=== PATIENT | male | born 1960 | race Caucasian/White ===

== ENCOUNTER → 2023-08-28 10:08 | Outpatient (REF) | payer OTHER, SELFPAY | LOC: RAD 10:08 | PROVIDERS: ATTENDING PHYSICIAN Internal Medicine Cardiovascular Disease; FAMILY PHYSICIAN Internal Medicine | DX: E85.9 Amyloidosis, unspecified (principal) | CPT/HCPCS: 78803; A9538 ==

== ENCOUNTER 2024-06-23 05:01 | Emergency (ER) | payer OTHER, SELFPAY ==
[2024-06-23] VITALS (7 sets, daily range): BP systolic 176–219; BP diastolic 100–127; BMI 32.9
--- NOTE | 2024-06-23 07:35 | ED.GENMED ---
History of Present Illness
General
Chief Complaint: Cardiac Symptoms
Time Seen by Provider: 06/23/24 06:36
History of Present Illness
History of Present Illness:
63-year-old male with history of paroxysmal A-fib, hypertension, BPH, [id number]-mbsxphzkj diabetes and hypothyroidism presents to the emergency department for evaluation of general malaise and fatigue. He was concerned last night that he may have
been in A-fib and notes that his pulse rate seem to dip frequently below 50. Denies any syncope or presyncope sensations. He did not take his nighttime beta-radha last night. No chest pain or shortness of breath. No recent fevers or chills.
Past history of multiple ablations for A-fib, he states to me that he has been recommended against consideration of antiarrhythmic therapy due to other medical concerns.
Past History
Past History
ED Past Medical History: Arrthythmia (Atrial fibrillation currently not on Coumadin), HTN, Hypercholesterolemia, NIDDM, Other (Peptic ulcer disease, gout) and Other (Goiter)
ED Past Surgical History: Other (Rouen-Y)
Social History
Tobacco: Non-smoker
Alcohol: Occasional
Drug: None
Personal:
Living: with family
Employment: Employed
Family History
Family History: Unable to obtain
Review of Systems
Review of Systems
Allergies reviewed?: Yes
All Other Systems: ROS reviewed and negative except as documented in HPI and ROS
Phy Exam
Physical Exam
Physical Exam:
GEN: Well appearing, NAD, WDWN
HEENT: Oral mucosa moist, no scleral icterus
Cardiac: Bradycardic, some irregularity/extrasystoles
Lung: No respiratory distress, no tachypnea
MSK: No gross deformity or injuries
Skin: Good color, no pallor or jaundice, no rashes
Neuro: AO x3, moves all extremities freely
Psych: Calm, cooperative
Course
Orders/Labs/Results
Orders:
Orders
06/23/24 05:06
ECG [Electrocardiogram (*1)] Urgent
Reason for Study: Atrial Fibrillation
06/23/24 05:07
EKG- Treatment ONCE
06/23/24 07:14
Complete Blood Count/With Diff Urgent
Comprehensive Metabolic Panel Urgent
06/23/24 08:18
Lactated Ringers [Lr] 1,000 ml IV BOLUS
06/23/24 08:46
Diltiazem [Cardizem] 60 mg PO NOW STA
Lisinopril [Zestril] 20 mg PO NOW STA
Abnormal Lab Results
06/23/24
07:14
RBC 3.27 L 10^6/uL
(4.70-6.10)
Hgb 10.0 L g/dL
(13.0-18.0)
Hct 30.1 L %
(39.0-52.0)
MPV 11.6 H fL
(7.4-10.4)
Absolute Lymphs (auto) 1.1 L 10^3/uL
(1.2-3.4)
Lymphocytes % 17.6 L %
(20.5-51.1)
Monocytes % 9.9 H %
(1.7-9.3)
Chloride 112 H mmol/L
(98-107)
BUN 41 H mg/dl
(9-20)
Creatinine 1.5 H mg/dL
(0.7-1.3)
Glucose 139 H mg/dl
(70-99)
ALT 54 H U/L
(0-50)
Total Protein 5.9 L g/dl
(6.3-8.2)
06/23/24 07:14
06/23/24 07:14
Vital Signs
Initial and Last Documented VS:
Initial Vital Signs
Temp Pulse Resp BP Pulse Ox
98 F 86 20 177/100 100
06/23/24 05:03 06/23/24 05:03 06/23/24 05:03 06/23/24 05:03 06/23/24 05:03
Last Documented Vital Signs
Temp Pulse Resp BP Pulse Ox
98 F 77 19 193/104 98
06/23/24 05:03 06/23/24 09:15 06/23/24 09:15 06/23/24 09:15 06/23/24 09:15
MDM/Problems Addressed
MDM/Problems Addressed:
Patient reporting symptomatic bradycardia due to heart rates in the 30s at home, I suspect some of this is artifactual due to his frequent PACs however with not having taken his beta-radha in over 24 hours he remains in the low 60s to upper 50s
continuously on telemetry. Given his reported fatigue I feel it is reasonable to down titrate his beta-blockers at home. This may result in uncontrolled hypertension and I recommended he see his primary care physician to follow-up on this.
*Critical Care Note
Total Time (30-74mins, 75-104mins- exclusive of procedures): Not Applicable
ED Attending Note
-
Portions of this chart may have been created with voice recognition software.� Occasional wrong word or��sound alike� substitutions may have occurred due to the inherent limitations of voice recognition software.
Discharge Plan
Departure
Patient Disposition: Home (Routine Discharge)
Date of Disposition: 06/23/24
Time of Disposition: 09:20
Patient with high blood pressure during this ER visit?: No
Discharge Problem:
Symptomatic bradycardia
Instructions: Bradycardia
Prescriptions:
No Action
metoprolol tartrate [Lopressor] 50 MG tablet
100 mg PO BID
allopurinol 300 MG tablet
300 mg PO QPM
Xarelto 20 mg Tablet
10 mg PO DAILY
methimazole 5 mg Tablet
5 mg PO DAILY
lisinopril 20 mg Tablet
20 mg PO DAILY
multivitamin Tablet
1 tab PO DAILY
zolpidem 10 mg Tablet
5 mg PO HS
alfuzosin 10 mg Tablet Extended Release 24 Hr
10 mg PO QPM
diltiazem HCl 60 mg Capsule,Extended Release 12 Hr
60 mg PO BID
lorazepam 1 mg Tablet
1 mg PO DAILYPRN PRN (Reason: anxiety)
Trulicity 1.5 mg/0.5 mL Pen Injector
1.5 mg SC TU
Referrals:
Jordan Sandoval MD [Family Provider] -
Activity Restrictions/Additional Instructions:
Decrease your metoprolol to 50mg twice daily
Follow up with your utility inspector and your primary doctor in 1-2 weeks for a blood pressure check and repeat EKG
Interventions
Interventions:
*Risk Screen - Suicide Last Done: 06/23/24 05:03
*General Assessment Last Done: 06/23/24 06:42
*Neglect/Abuse Screening Last Done: 06/23/24 05:03
*ED- Fall Risk Assessment Last Done: 06/23/24 06:42
*ED COVID-19 Vaccine History Last Done: 06/23/24 06:42
*Nursing Disposition Last Done: 06/23/24 09:41
ED- Pulmonary Assessment Last Done: 06/23/24 06:42
ED- Cardiac Assessment Last Done: 06/23/24 06:42
Discharge Date and Time
Discharge Date/Time: 06/23/24 09:41
Print Language: NEPALI
[2024-06-23 07:48] LABS: % Basophils 0.8 % (0-2); % Eosinophils 3.9 % (0-6); % Immature Granulocytes 0.5 % (0-0.5); % Lymphocytes 17.6 % (20.5-51.1); % Monocytes 9.9 % (1.7-9.3); % Neutrophils 67.3 % (42.2-75.2); Absolute Basophils 0.1 10^3/uL (0-0.2); Absolute Eosinophils 0.3 10^3/uL (0-0.7); Absolute Lymphocytes 1.1 10^3/uL (1.2-3.4); Absolute Monocytes 0.6 10^3/uL (0.1-0.6); Absolute Neutrophils 4.3 10^3/uL (1.4-6.5); Hematocrit 30.1 % (39.0-52.0); Mean Corp Hgb Conc. 33.2 g/dL (33.0-37.0); Mean Corpuscular Hgb 30.6 pg (27.0-31.0); Mean Platelet Volume 11.6 fL (7.4-10.4); Nucleated Red Blood Cells % 0 % (-); Platelet Count 132 10^3/uL (130-400); Red Blood Cell Count 3.27 10^6/uL (4.70-6.10); Red Cell Dist. Width 13.3 % (11.5-14.5); White Blood Cell Count 6.4 10^3/uL (4.8-10.8)
[2024-06-23 08:14] LABS: ALT (SGPT) 54 U/L (0-50); AST (SGOT) 39 U/L (17-59); Albumin 3.5 g/dl (3.5-5.0); Alkaline Phosphatase 84 U/L (38-126); Blood Urea Nitrogen 41 mg/dl (9-20); Carbon Dioxide 22 mmol/L (22-30); Chloride 112 mmol/L (98-107); Estimated Creatinine Clearance 76 ml/min; Glucose 139 mg/dl (70-99); Potassium 4.4 mmol/L (3.5-5.1); Sodium 141 mmol/L (135-145); Total Bilirubin 0.6 mg/dl (0.2-1.3); Total Protein 5.9 g/dl (6.3-8.2); eGFR 51.99
[2024-06-23] MEDS: LR 1000 IV (08:28)
[2024-06-23] MEDS: ZESTRIL 20 MG PO (09:14)
[2024-06-23] MEDS: CARDIZEM 60 MG PO (09:15)
== END 2024-06-23 09:41 | disposition home or self-care (01) ==
LOC: EMR 05:01
PROVIDERS: EMERGENCY PHYSICIAN Emergency Medicine; FAMILY PHYSICIAN Internal Medicine
DX: R00.1 Bradycardia, unspecified (principal); I48.0 Paroxysmal atrial fibrillation; I10 Essential (primary) hypertension; E11.9 Type 2 diabetes mellitus without complications; E03.9 Hypothyroidism, unspecified
CPT/HCPCS: 99284; 96360; 80053; 85025; 93005

== ENCOUNTER → 2024-07-15 15:50 | Outpatient (REF) | payer OTHER, SELFPAY | LOC: RCS 15:50 | PROVIDERS: ATTENDING PHYSICIAN Physician Assistant Medical; FAMILY PHYSICIAN Internal Medicine | DX: I10 Essential (primary) hypertension (principal) | CPT/HCPCS: 93306 ==

== ENCOUNTER 2024-08-12 10:14 | Day surgery (SDC) | payer OTHER, SELFPAY ==
[2024-08-12] VITALS (20 sets, daily range): BP systolic 138–171; BP diastolic 65–120
[2024-08-12 11:00] LABS: Glucose - Point of Care 128 mg/dl (70-99)
--- NOTE | 2024-08-12 15:55 | ITS.CL.PACE ---
[facility] - Pacemaker Implant
Pacemaker Implant
Procedure Report:
Date of Procedure: August 12, 2024
Patient : 1960
Procedure: Pacemaker Implantation.
Indication: Sick sinus syndrome with symptomatic pauses greater than 3 seconds and symptomatic sick sinus syndrome. History of atrial fibrillation status post ablation
Implants:
Pulse Generator: Medtronic; Model# W1 DR 01; SN: [id number]
RA Lead: Medtronic; Model# 4574; SN: BB [id number]
RV Lead: Medtronic; Model# 4074; SN: BBD [id number]
Technique: A time out was performed. The procedure site was identified. The patient was anesthetized by the anesthesia service. Preoperative sedation was administered. The patient was prepped and draped in the usual fashion. Local anesthetic was
applied to the left prepectoral subcutaneous tissue. A 3 inch incision was made 2.5 inches below the left clavicle. A subcutaneous pocket was created with blunt and sharp dissection and hemostasis controlled with Bovie cautery. The left axillary
vein was accessed within the pocket without difficulty. Hemostasis was excellent. The leads were introduced with 7 Fr hemostatic peel away introducer sheaths. The ventricular lead was placed at the right ventricular apex. The atrial lead was placed
in the right atrial appendage. 10 volt pacing did not capture the diaphragm. The leads were secured to the pectoralis muscle and fascia. The leads were appropriately attached to the device. The pocket was irrigated with antibiotic solution. The
device and leads were placed in the pocket. The incision was closed in three layers with absorbable suture. The estimated blood loss was minimal. There were no complications.
Lead Analysis:
RA lead: P: 2 mV; Threshold: 0.375 V @ 0.5 ms at implant. In holding area threshold was noted to be 2.5 at 0.4 with appropriate sensing and capture and stable P wave at 2 mV. Increased output on the lead to 4.0 V at 1.0 ms and we will recheck it
interrogation in the office. The patient's chest x-ray was reviewed with stable lead positions compared to implant and stable P wave.; Impedance: 630 ohms.
RV lead: R: 11 mV; Threshold: 0.4 V @ 0.5 ms; Impedance: 780 ohms.
Final Programming: AAIR�DDDR 60 to 130 bpm
Conclusion: Uncomplicated Medtronic pacemaker implant.
Recommendation: Routine post pacemaker care.
--- NOTE | 2024-08-12 16:17 | DOWNTIME ---
There was a [employer] Client Preschool Teacher Assistant Downtime on 08/12/2024 from 1230 to 08/12/2024 at 1550. Downtime documentation of patient's care, including medication administrations, has been reconciled in the electronic record per guidelines. Refer to the
patient's paper chart under the miscellaneous tab to see printed paper medication records and downtime forms.
[2024-08-12] MEDS: ANCEF 5 IV (16:54)
--- NOTE | 2024-08-13 07:16 | ITS.CL.PACE ---
Operating System Designer - Pacemaker Implant
Pacemaker Implant
Procedure Report:
Date of Procedure: August 12, 2024
Patient : 1960
Procedure: Pacemaker Implantation.
Indication: Symptomatic sick sinus syndrome
Implants:
Pulse Generator: Medtronic; Model# W1 DR 01; SN: [id number]
RA Lead: Medtronic; Model# 4574; SN: BB [id number]
RV Lead: Medtronic; Model# 4074; SN: BBD [id number]
Technique: A time out was performed. The procedure site was identified. The patient was anesthetized by the anesthesia service. Preoperative sedation was administered. The patient was prepped and draped in the usual fashion. Local anesthetic was
applied to the left prepectoral subcutaneous tissue. A 3 inch incision was made 2.5 inches below the left clavicle. A subcutaneous pocket was created with blunt and sharp dissection and hemostasis controlled with Bovie cautery. The left axillary
vein was accessed within the pocket without difficulty. Hemostasis was excellent. The leads were introduced with 7 Fr hemostatic peel away introducer sheaths. The ventricular lead was placed at the right ventricular [ ]. The atrial lead was placed
in the right atrial appendage. 10 volt pacing did not capture the diaphragm. The leads were secured to the pectoralis muscle and fascia. The leads were appropriately attached to the device. The pocket was irrigated with antibiotic solution. The
device and leads were placed in the pocket. The incision was closed in three layers with absorbable suture. The estimated blood loss was minimal. There were no complications.��
Lead Analysis:
RA lead: P: 2 mV; Threshold: 2.5 V @ 0.5��ms; Impedance: 630 ohms. The original threshold implant was 0.375 but in the holding area intermittent loss of capture and atrial lead was noted with appropriate sensing. Repeat interrogation demonstrated
P waves stable at 2 mV and threshold at 2.5 at 0.5 ms with stable lead positions compared to implant on chest x-ray. As such we increased the output to 4 V at 1 ms with appropriate sensing and capture
RV lead: R: 11 mV; Threshold: 0.4 V @ 0.5��ms; Impedance: 780 ohms.
Final Programming: AAIR�DDDR 60-130 beats minute
�
Conclusion: Uncomplicated Medtronic pacemaker implant.
Recommendation: Routine post pacemaker care.
== END 2024-08-12 17:15 | disposition home or self-care (01) ==
LOC: CATH 10:14
PROVIDERS: ATTENDING PHYSICIAN Internal Medicine Cardiovascular Disease; FAMILY PHYSICIAN Internal Medicine
DX: I49.5 Sick sinus syndrome (principal); I48.91 Unspecified atrial fibrillation; Z98.890 Other specified postprocedural states; Z79.85 Long-term (current) use of injectable non-insulin antidiabetic drugs; Z79.899 Other long term (current) drug therapy; Z79.01 Long term (current) use of anticoagulants; I10 Essential (primary) hypertension; E11.9 Type 2 diabetes mellitus without complications; E03.9 Hypothyroidism, unspecified
CPT/HCPCS: 33208; 71045; 82962; 93005; C1785; C1892; C1898; Q9967

== ENCOUNTER 2024-08-26 09:26 | Emergency (ER) | payer OTHER, SELFPAY ==
[2024-08-26 09:33] VITALS: BP 166/95
--- NOTE | 2024-08-26 10:18 | ED.GENMED ---
History of Present Illness
<Florencio Muñoz MD - Last Filed: 08/26/24 14:45>
General
Chief Complaint: Back Pain
Time Seen by Provider: 08/26/24 09:53
History of Present Illness
History of Present Illness:
Patient is a 64-year-old male with history of A-fib on Xarelto, prior DVT, diabetes, hypertension, hyperlipidemia presenting to the emergency department with right hip pain. He presents with pain and swelling in his right leg, greater than
previously experienced, and significant enough to impair ambulation. The symptoms began yesterday with a sensation resembling a muscle cramp upon rising from an office chair. By the time he returned home, the conditions had worsened, and he was
unable to walk without using a chair as a walker. The swelling and pain are not attributed to edema, and the patient rated the pain as intolerable. He has not missed any doses of Rivaroxaban, which was briefly paused post-pacemaker installation but
resumed five days later. The patient also started wearing compression socks yesterday, which his noted as too tight, potentially contributing to symptom exacerbation. He denies redness or abscess formation around the hip region. The pain
localized to the posterior aspect of the thigh and does not radiate down the leg. No fevers or chills. No spinal injections. No numbness tingling. No traumatic injuries.
Past History
<Florencio Muñoz MD - Last Filed: 08/26/24 14:45>
Past History
ED Past Medical History: Arrthythmia (Atrial fibrillation currently not on Coumadin), HTN, Hypercholesterolemia, NIDDM, Other (Peptic ulcer disease, gout) and Other (Goiter)
ED Past Surgical History: Other (Rouen-Y)
Social History
Tobacco: Non-smoker
Alcohol: Occasional
Drug: None
Personal:
Living: with family
Employment: Employed
Family History
Family History: Unable to obtain
Phy Exam
<Florencio Muñoz MD - Last Filed: 08/26/24 14:45>
Physical Exam
Physical Exam:
GENERAL: in no acute distress
HEENT: normocephalic, extraocular movements intact, moist oral mucosa
NECK: normal inspection
RESPIRATORY: no respiratory distress, clear to auscultation bilaterally
CARDIOVASCULAR: regular rate and rhythm
ABDOMEN/: soft, non-distended, non-tender to palpation, no rebound or guarding
EXTREMITIES: Right posterior hip tenderness to palpation, no associated erythema edema or skin changes, right lower extremity swelling worse than left
NEUROLOGIC: awake and alert, moves all extremities
SKIN: warm
Course
<Florencio Muñoz MD - Last Filed: 08/26/24 14:45>
Orders/Labs/Results
Orders:
Orders
08/26/24 10:12
Acetaminophen [Tylenol] 1,000 mg PO NOW STA
CR Hip - RT w/wo Pel 2-3 Vw* Urgent
Comment:
Reason For Exam: right posterior hip pain
Include a pelvis x-ray?: Yes
US Legs, Right [US Periph Venous LOWER Ext RT] Urgent
Comment:
Reason For Exam: swelling
08/26/24 10:32
Basic Metabolic Panel Urgent
Complete Blood Count/With Diff Urgent
08/26/24 11:44
Urinalysis Reflex To Culture Urgent
Date Specimen was Collected: 08/26/24
Time Specimen was Collected: 11:38
Urine Microscopic Reflex Cult Urgent
Urine Culture Urgent
SLAVA Source: U
Specimen Description:
Date Specimen was Collected: 08/26/24
Time Specimen was Collected: 11:38
08/26/24 12:14
CT Abd/pelvis W Iv Cont Urgent
Comment:
Reason For Exam: hematuria, hip pain
08/26/24 12:53
Case Management Consult ONCE
Case Management Consult: Durable Medical Equip
08/26/24 12:58
Cefdinir [Omnicef] 300 mg PO NOW STA
08/26/24 14:28
Pt Eval And Treat Urgent
Activity Level: Ambulate
08/26/24 16:23
Case Management Consult ONCE
Case Management Consult: VN/Home Care
Abnormal Lab Results
08/26/24 08/26/24
10:32 11:44
RBC 3.22 L 10^6/uL
(4.70-6.10)
Hgb 9.1 L g/dL
(13.0-18.0)
Hct 28.1 L %
(39.0-52.0)
MCHC 32.4 L g/dL
(33.0-37.0)
MPV 10.9 H fL
(7.4-10.4)
Absolute Lymphs (auto) 0.6 L 10^3/uL
(1.2-3.4)
Neutrophils % 81.6 H %
(42.2-75.2)
Lymphocytes % 8.2 L %
(20.5-51.1)
Chloride 114 H mmol/L
(98-107)
Carbon Dioxide 20 L mmol/L
(22-30)
BUN 25 H mg/dl
(9-20)
Glucose 151 H mg/dl
(70-99)
Ur Occult Blood Reflex 4+ A
(Negative)
Leukocyte Esterase Rfl 1+ A
(Negative)
Urine RBC 30-40 A /HPF
(0-2)
Urine Bacteria (Reflex) Few A
(Negative)
Urine Albumin (Reflex) 2+ A
(Neg - Trace)
08/26/24 10:32
08/26/24 10:32
Vital Signs
Initial and Last Documented VS:
Initial Vital Signs
Temp Pulse Resp BP Pulse Ox
98.5 F 91 18 166/95 99
08/26/24 09:33 08/26/24 09:33 08/26/24 09:33 08/26/24 09:33 08/26/24 09:33
Last Documented Vital Signs
Temp Pulse Resp BP Pulse Ox
98.5 F 91 18 166/95 99
08/26/24 09:33 08/26/24 09:33 08/26/24 09:33 08/26/24 09:33 08/26/24 09:33
<Akash Souza MD - Last Filed: 08/27/24 19:24>
Orders/Labs/Results
Orders:
Orders
08/26/24 10:12
Acetaminophen [Tylenol] 1,000 mg PO NOW STA
CR Hip - RT w/wo Pel 2-3 Vw* Urgent
Comment:
Reason For Exam: right posterior hip pain
Include a pelvis x-ray?: Yes
US Legs, Right [US Periph Venous LOWER Ext RT] Urgent
Comment:
Reason For Exam: swelling
08/26/24 10:32
Basic Metabolic Panel Urgent
Complete Blood Count/With Diff Urgent
08/26/24 11:44
Urinalysis Reflex To Culture Urgent
Date Specimen was Collected: 08/26/24
Time Specimen was Collected: 11:38
Urine Microscopic Reflex Cult Urgent
Urine Culture Urgent
SLAVA Source: U
Specimen Description:
Date Specimen was Collected: 08/26/24
Time Specimen was Collected: 11:38
08/26/24 12:14
CT Abd/pelvis W Iv Cont Urgent
Comment:
Reason For Exam: hematuria, hip pain
08/26/24 12:53
Case Management Consult ONCE
Case Management Consult: Durable Medical Equip
08/26/24 12:58
Cefdinir [Omnicef] 300 mg PO NOW STA
08/26/24 14:28
Pt Eval And Treat Urgent
Activity Level: Ambulate
08/26/24 16:23
Case Management Consult ONCE
Case Management Consult: VN/Home Care
Abnormal Lab Results
08/26/24 08/26/24
10:32 11:44
RBC 3.22 L 10^6/uL
(4.70-6.10)
Hgb 9.1 L g/dL
(13.0-18.0)
Hct 28.1 L %
(39.0-52.0)
MCHC 32.4 L g/dL
(33.0-37.0)
MPV 10.9 H fL
(7.4-10.4)
Absolute Lymphs (auto) 0.6 L 10^3/uL
(1.2-3.4)
Neutrophils % 81.6 H %
(42.2-75.2)
Lymphocytes % 8.2 L %
(20.5-51.1)
Chloride 114 H mmol/L
(98-107)
Carbon Dioxide 20 L mmol/L
(22-30)
BUN 25 H mg/dl
(9-20)
Glucose 151 H mg/dl
(70-99)
Ur Occult Blood Reflex 4+ A
(Negative)
Leukocyte Esterase Rfl 1+ A
(Negative)
Urine RBC 30-40 A /HPF
(0-2)
Urine Bacteria (Reflex) Few A
(Negative)
Urine Albumin (Reflex) 2+ A
(Neg - Trace)
08/26/24 10:32
08/26/24 10:32
Vital Signs
Initial and Last Documented VS:
Initial Vital Signs
Temp Pulse Resp BP Pulse Ox
98.5 F 91 18 166/95 99
08/26/24 09:33 08/26/24 09:33 08/26/24 09:33 08/26/24 09:33 08/26/24 09:33
Last Documented Vital Signs
Temp Pulse Resp BP Pulse Ox
98.5 F 91 18 166/95 99
08/26/24 09:33 08/26/24 09:33 08/26/24 09:33 08/26/24 09:33 08/26/24 09:33
<Florencio Muñoz MD - Last Filed: 08/26/24 14:45>
MDM/Problems Addressed
Differential Diagnosis Includes:
Patient is a 64-year-old male with history of A-fib on Xarelto, prior DVT, recent pacemaker placement that required putting his Xarelto for 5 days presenting to the emergency department with right hip pain and right leg swelling differential
consists of DVT versus muscle strain versus fracture though less likely. Considered cellulitis or abscess though history exam does not suggest. Will obtain x-ray of the right hip to start and CT scan if it does not show any acute finding. Will
obtain ultrasound of the right leg. Will check blood work given the muscle cramps or any electrolyte abnormalities. Will pain control.
<Akash Souza MD - Last Filed: 08/27/24 19:24>
*Critical Care Note
Total Time (30-74mins, 75-104mins- exclusive of procedures): Not Applicable
<Florencio Muñoz MD - Last Filed: 08/26/24 14:45>
Update Note
Update Note:
Ultrasound negative for DVT. Blood work generally unremarkable. X-ray per my interpretation no obvious fracture. Will proceed with pelvis CT
Urine does show significant hematuria and blood. Given the hip pain with the hematuria will obtain CT abdomen pelvis to rule out any vascular etiologies.
On reevaluation patient is resting comfortably. The pain has improved slightly after the Tylenol. He does state that he is now developing some dysuria and hematuria. He does state that this happened to him once before when he had a UTI. He does
feel that this is the beginning of it. Will treat with antibiotics.
Regarding patient's ambulation and the hip pain. X-ray does show significant arthritis. Patient does not want to go to rehab and would prefer to be discharged home. Will discuss with case management to make sure that he has the appropriate
equipment at home to prevent any falls.
Case management evaluated patient. Recommending PT eval.
CT scan reviewed. Patient without any tenderness to the right upper quadrant. Patient will prefer to not to obtain ultrasound which is reasonable given that he is asymptomatic. He does have a small pericardial effusion though he denies any chest
pain or shortness of breath. he did have a recent pacemaker placed. I did update cardiology so he could have outpatient follow up.
Patient signed out pending pt eval.
<Akash Souza MD - Last Filed: 08/27/24 19:24>
Update Note
Update Note:
Ultrasound negative for DVT. Blood work generally unremarkable. X-ray per my interpretation no obvious fracture. Will proceed with pelvis CT
Urine does show significant hematuria and blood. Given the hip pain with the hematuria will obtain CT abdomen pelvis to rule out any vascular etiologies.
On reevaluation patient is resting comfortably. The pain has improved slightly after the Tylenol. He does state that he is now developing some dysuria and hematuria. He does state that this happened to him once before when he had a UTI. He does
feel that this is the beginning of it. Will treat with antibiotics.
Regarding patient's ambulation and the hip pain. X-ray does show significant arthritis. Patient does not want to go to rehab and would prefer to be discharged home. Will discuss with case management to make sure that he has the appropriate
equipment at home to prevent any falls.
Case management evaluated patient. Recommending PT eval.
CT scan reviewed. Patient without any tenderness to the right upper quadrant. Patient will prefer to not to obtain ultrasound which is reasonable given that he is asymptomatic. He does have a small pericardial effusion though he denies any chest
pain or shortness of breath. he did have a recent pacemaker placed. I did update cardiology so he could have outpatient follow up.
Patient signed out pending pt eval.
4:10PM -patient evaluated by physical therapy who feels that patient is safe to be discharged home with a rolling walker, which will be dispensed at time of discharge. In addition, case management also evaluated patient and home VN arrangement made
prior to discharge
ED Attending Note
<Florencio Muñoz MD - Last Filed: 08/26/24 14:45>
-
Portions of this chart may have been created with voice recognition software.� Occasional wrong word or��sound alike� substitutions may have occurred due to the inherent limitations of voice recognition software.
Discharge Plan
Departure
Patient Disposition: Home (Routine Discharge)
Date of Disposition: 08/26/24
Time of Disposition: 16:31
Patient with high blood pressure during this ER visit?: Yes
Discharge Problem:
Ambulatory dysfunction
Instructions: Hip Pain ED
Prescriptions:
New
cefdinir 300 mg capsule
300 mg PO BID 7 Days Qty: 14 0RF
No Action
allopurinol 300 MG tablet
300 mg PO DAILY
Xarelto 20 mg Tablet
10 mg PO DAILY
methimazole 5 mg Tablet
5 mg PO DAILY
multivitamin Tablet
1 tab PO DAILY
zolpidem 10 mg Tablet
5 mg PO HS
alfuzosin 10 mg Tablet Extended Release 24 Hr
10 mg PO QPM
diltiazem HCl 60 mg Capsule,Extended Release 12 Hr
60 mg PO BID
lorazepam 1 mg Tablet
1 mg PO DAILYPRN PRN (Reason: anxiety)
Trulicity 1.5 mg/0.5 mL Pen Injector
1.5 mg SC TU
hydralazine 50 mg Tablet
50 mg PO TID
metoprolol succinate [Toprol XL] 25 mg tablet extended release 24 hr
25 mg PO BID Qty: 1 0RF
Referrals:
Jordan Sandoval MD [Family Provider, Internal Medicine]
Activity Restrictions/Additional Instructions:
As discussed, please continue to use provided walker for assistance when ambulating. In addition home PT/OT consultation has been placed. Please follow-up with your primary care physician for reevaluation.
Interventions
Interventions:
*Risk Screen - Suicide Last Done: 08/26/24 09:36
*General Assessment Last Done: 08/26/24 09:36
*Neglect/Abuse Screening Last Done: 08/26/24 09:36
*ED- Fall Risk Assessment Last Done: 08/26/24 16:45
*ED COVID-19 Vaccine History Last Done: 08/26/24 09:36
*Nursing Disposition Last Done: 08/26/24 16:45
ED-Musculoskeletal Assessment Last Done: 08/26/24 10:49
Discharge Date and Time
Discharge Date/Time: 08/26/24 16:45
Print Language: PUERTO RICAN
[2024-08-26 10:42] LABS: % Basophils 0.7 % (0-2); % Eosinophils 1.7 % (0-6); % Immature Granulocytes 0.4 % (0-0.5); % Lymphocytes 8.2 % (20.5-51.1); % Monocytes 7.4 % (1.7-9.3); % Neutrophils 81.6 % (42.2-75.2); Absolute Basophils 0.1 10^3/uL (0-0.2); Absolute Eosinophils 0.1 10^3/uL (0-0.7); Absolute Lymphocytes 0.6 10^3/uL (1.2-3.4); Absolute Monocytes 0.6 10^3/uL (0.1-0.6); Absolute Neutrophils 6.1 10^3/uL (1.4-6.5); Hematocrit 28.1 % (39.0-52.0); Hemoglobin 9.1 g/dL (13.0-18.0); Mean Corp Hgb Conc. 32.4 g/dL (33.0-37.0); Mean Corpuscular Hgb 28.3 pg (27.0-31.0); Mean Corpuscular Volume 87.3 fL (80.0-94.0); Mean Platelet Volume 10.9 fL (7.4-10.4); Nucleated Red Blood Cells % 0 % (-); Platelet Count 155 10^3/uL (130-400); Red Blood Cell Count 3.22 10^6/uL (4.70-6.10); Red Cell Dist. Width 13.8 % (11.5-14.5); White Blood Cell Count 7.4 10^3/uL (4.8-10.8)
[2024-08-26 11:10] LABS: Blood Urea Nitrogen 25 mg/dl (9-20); Calcium 8.6 mg/dl (8.4-10.2); Carbon Dioxide 20 mmol/L (22-30); Chloride 114 mmol/L (98-107); Glucose 151 mg/dl (70-99); Potassium 4.3 mmol/L (3.5-5.1); Sodium 139 mmol/L (135-145); eGFR > 60.00
[2024-08-26 11:54] LABS: Urine Albumin 2+ (Neg - Trace); Urine Bilirubin Negative (Negative); Urine Character Slightly Cloudy (Clear); Urine Color Yellow; Urine Glucose Negative (Negative); Urine Ketone Negative (Negative); Urine Leukocyte 1+ (Negative); Urine Nitrite Negative (Negative); Urine Occult Blood 4+ (Negative); Urine Specific Gravity 1.015 (<1.030); Urine Urobilinogen Negative (Neg - 1+)
[2024-08-26 12:02] LABS: Urine Bacteria Few (Negative); Urine Red Blood Cell 30-40 /HPF (0-2); Urine Squamous Cell 0-2 /LPF (Few); Urine White Cell 0-2 /HPF (0-5)
[2024-08-26] MEDS: OMNICEF 300 MG PO (14:42)
[2024-08-26] MEDS: TYLENOL 1000 MG PO (14:42)
--- NOTE | 2024-08-26 16:24 | CM ---
CM Consult - Met with pt bedside in ED. Lives with in multistory home, [address]. first floor bath.
Seen by PT, able to ambulate with walker, PT recommending Home PT/OT, Pt is agreeable
Referral to [facility] walker issued by PT
Pt calling family for ride home.
[2024-08-26 16:33] VITALS: BP 169/97
== END 2024-08-26 16:45 | disposition home or self-care (01) ==
LOC: EMR 09:26
PROVIDERS: EMERGENCY PHYSICIAN Student in an Organized Health Care Education/Training Program; FAMILY PHYSICIAN Internal Medicine; OTHER PHYSICIAN Internal Medicine Cardiovascular Disease
DX: R26.9 Unspecified abnormalities of gait and mobility (principal); I48.91 Unspecified atrial fibrillation; E11.9 Type 2 diabetes mellitus without complications; E78.00 Pure hypercholesterolemia, unspecified; I10 Essential (primary) hypertension; Z79.01 Long term (current) use of anticoagulants; Z86.718 Personal history of other venous thrombosis and embolism; Z95.0 Presence of cardiac pacemaker
CPT/HCPCS: 99284; 73502; 74177; 80048; 81003; 81015; 85025; 87077; 87086; 87186; 93971; Q9967

== ENCOUNTER → 2024-09-08 11:42 | Outpatient (REF) | payer OTHER, SELFPAY | LOC: RAD 11:42 | PROVIDERS: ATTENDING PHYSICIAN Nurse Practitioner; FAMILY PHYSICIAN Internal Medicine | DX: I82.531 Chronic embolism and thrombosis of right popliteal vein (principal) | CPT/HCPCS: 93971 ==